=== PATIENT | male | born 1975 ===

== ENCOUNTER 2018-08-26 13:46 | Emergency (ER) | payer MEDICAID, OTHER ==
--- NOTE | 2018-08-26 14:09 | C.PDOC ---
Time Seen by Provider: 08/26/18 14:00 Chief Complaint (Nursing): Lower Extremity Problem/Injury Past Medical History Vital Signs: Last Vital Signs Temp 98.4 F 08/26/18 13:48 Pulse 73 08/26/18 13:48 Resp 20 08/26/18 13:48 BP 131/87 08/26/18 13:48 Pulse Ox 98 08/26/18 13:48 - Social History Hx Alcohol Use: Yes Hx Substance Use: No - Immunization History Hx Tetanus Toxoid Vaccination: No Hx Influenza Vaccination: No Hx Pneumococcal Vaccination: No ED Course And Treatment O2 Sat by Pulse Oximetry: 98 Disposition - Disposition Forms: [facility] ([place]rainian)
--- NOTE | 2018-08-26 14:11 | C.PDOC ---
History Of Present Illness 43 year old male presents to the ED sent by Dr. Cordova for evaluation of right big toe infection. Reports he tried to remove an ingrown nail but it became infected. Complains of pain and swelling. Denies any fever or chills or any other complaints. Denies history of DM. Time Seen by Provider: 08/26/18 14:00 Chief Complaint (Nursing): Lower Extremity Problem/Injury History Per: Patient History/Exam Limitations: no limitations Onset/Duration Of Symptoms: Days Current Symptoms Are (Timing): Still Present Past Medical History Reviewed: Historical Data, Nursing Documentation, Vital Signs Vital Signs: Last Vital Signs Temp 98.4 F 08/26/18 13:48 Pulse 73 08/26/18 13:48 Resp 20 08/26/18 13:48 BP 131/87 08/26/18 13:48 Pulse Ox 98 08/26/18 13:48 - Medical History PMH: No Chronic Diseases Surgical History: No Surg Hx Family History: States: No Known Family Hx - Social History Hx Alcohol Use: Yes Hx Substance Use: No - Immunization History Hx Tetanus Toxoid Vaccination: No Hx Influenza Vaccination: No Hx Pneumococcal Vaccination: No Review Of Systems Except As Marked, All Systems Reviewed And Found Negative. Constitutional: Negative for: Fever, Chills Physical Exam - Physical Exam Appears: Non-toxic, No Acute Distress Skin: Warm, Dry, No Rash Head: Normacephalic Eye(s): bilateral: Normal Inspection Nose: Normal Oral Mucosa: Moist Neck: Supple Chest: Symmetrical Cardiovascular: Rhythm Regular, No Murmur Respiratory: Normal Breath Sounds, No Rales, No Rhonchi, No Wheezing Extremity: Tenderness (right big toe ), No Pedal Edema, No Deformity, Swelling (right big toe ), Other (purulent drainage in inner cuticle of right big toe ) Neurological/Psych: Oriented x3, Normal Speech Gait: Steady ED Course And Treatment - Laboratory Results Result Diagrams: 08/26/18 14:35 08/26/18 14:35 Lab Interpretation: Normal O2 Sat by Pulse Oximetry: 98 (RA) Pulse Ox Interpretation: Normal - Other Rad No standard instances X-Ray: Viewed By Me, Read By Radiologist Interpretation: FINDINGS: BONES: Normal. No fracture. JOINTS: Normal. SOFT TISSUES: Mild diffuse soft tissue swelling in the foot. OTHER FINDINGS: None. IMPRESSION: No acute fracture or bone destruction. Mild diffuse soft tissue swelling in the foot likely represents cellulitis. Progress Note: Treated with vancomycin IV. Case discussed and patient evaluated by podiatry resident who request uric acid level. Patient re-evaluated by podiatry resident who request discharge and follow up with podiatry. Podiatry resident request prescriptions for cipro, clindamycin and colchine be given to patient at discharge. Patient discharge in stable condition Reassessment Condition: Improved Medical Decision Making Medical Decision Making: Plan - Bloodwork - UA - XR right foot - UA Discussed case with Podiatry resident. Will come to evaluate patient. 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 - Scribe Statement The provider has reviewed the documentation as recorded by the Jesseeibmarco Gamez All medical record entries made by the Campbell were at my direction and personally dictated by me. I have reviewed the chart and agree that the record accurately reflects my personal performance of the history, physical exam, medical decision making, and the department course for this patient. I have also personally directed, reviewed, and agree with the discharge instructions and disposition.
[2018-08-26] MEDS ORDERED: Vancomycin 1 GM 1 GM/250 ML BAG IV STA (14:13)
[2018-08-26 14:29] LABS: URINE BILIRUBIN NEGATIVE (NEGATIVE); URINE BLOOD 2+ (NEGATIVE); URINE CLARITY Clear (Clear); URINE COLOR Yellow (YELLOW); URINE GLUCOSE (UA) NORMAL (Normal); URINE LEUKOCYTE ESTERASE NEG Leu/uL (Negative); URINE PROTEIN NEGATIVE (NEGATIVE); URINE UROBILINOGEN NORMAL mg/dL (0.2-1.0)
[2018-08-26] MEDS ORDERED: Vancomycin 1 GM 1 GM/250 ML BAG IVPB ONE (14:30)
[2018-08-26 14:41] LABS: BASO % 0.6 % (0.0-2.0); EOS % 0.7 % (0.0-4.0); HEMOGLOBIN 13.4 g/dL (12.0-18.0); LYMPH # 1.6 K/uL (1.0-4.3); LYMPH % 29.4 % (20.0-40.0); MEAN CELL VOLUME 87.4 fL (80.0-94.0); MEAN CORPUSCULAR HEMOGLOBIN 29.8 pg (27.0-31.0); MEAN CORPUSCULAR HGB CONC 34.1 g/dL (33.0-37.0); MEAN PLATELET VOLUME 6.4 fL (7.2-11.7); MONO # 0.3 K/uL (0.0-0.8); MONO % 5.4 % (0.0-10.0); NEUT # 3.5 K/uL (1.8-7.0); NEUT % 63.9 % (50.0-75.0); NRBC % 0.1 % (0.0-2.0); RBC 4.49 Mil/uL (4.40-5.90); RED CELL DISTRIBUTION WIDTH 12.5 % (11.5-14.5); WHITE BLOOD COUNT 5.4 K/uL (4.8-10.8)
--- NOTE | 2018-08-26 14:51 | RAD ---
Date of service: 08/26/2018 PROCEDURE: Right Foot Radiographs. HISTORY: cellulitis COMPARISON: None. TECHNIQUE: 3 views obtained. FINDINGS: BONES: Normal. No fracture. JOINTS: Normal. SOFT TISSUES: Mild diffuse soft tissue swelling in the foot. OTHER FINDINGS: None. IMPRESSION: No acute fracture or bone destruction. Mild diffuse soft tissue swelling in the foot likely represents cellulitis.
[2018-08-26 14:55] LABS: ALB/GLOB RATIO 1.2 (1.0-2.1); ALBUMIN 4.5 g/dL (3.5-5.0); ALT/SGPT 25 U/L (21-72); AST/SGOT 32 U/L (17-59); BLOOD UREA NITROGEN 14 mg/dL (9-20); GFR NON-AFRICAN AMERICAN > 60
--- NOTE | 2018-08-26 16:02 | CP.PCM.CON ---
History of Present Illness - History of Present Illness History of Present Illness: Podiatry Consult Note: Dr. Gotti 43 year old male with no significant PMHx was evaluated in ED after being sent by Dr. Gotti for right big toe pain. Patient states that he had a nail avulsion performed in the ED by Dr. Gotti past Thursday. Reports that he has been taking Keflex as an outpatient but today he noticed little swelling around the big toe area. States that he went to go see Dr. Gotti who was concerned for an infection and decided to send him to the ER. Patient states that he had little pain to the toe this morning but he is feeling better now. Upon asking, reports that he has high amount of red meat, and sea foot consumption. States that he drinks a lot of beer and occasional Whisky. Patient denies of having any recent F/N/V/C/SOB/CP/headache. No other pedal complains at this time. PMHx: Denies PSHx: Denies Allergies: N.K.D.A SHx: Denies smoking, Agrees to EtOH use, denies illicit drug usage Review of Systems - Constitutional Constitutional: As Per HPI Past Patient History - Past Social History Smoking Status: Vapor - PSYCHIATRIC Hx Substance Use: No - SURGICAL HISTORY Hx Surgeries: No - ANESTHESIA Hx Anesthesia: No Meds Home Medications: Home Medication List Medication Instructions Recorded Confirmed Type Ciprofloxacin [Cipro] 1 tab PO BID #14 tab 08/26/18 Rx Clindamycin [Cleocin] 300 mg PO TID #21 cap 08/26/18 Rx Colchicine 0.6 mg PO DAILY #10 tablet 08/26/18 Rx Allergies/Adverse Reactions: Allergies Allergy/AdvReac Type Severity Reaction Status Date / Time No Known Allergies Allergy Verified 08/26/18 13:52 Physical Exam - Constitutional Appears: Well, Non-toxic, No Acute Distress - Extremities Exam Additional comments: RLE focused exam: VASC: DP/PT pulses are palpable 2/4; Cap refill time: < 3 sec to all digits, Temp gradient: warm to cool from proximal to distal with localized warmth on the medial aspect of the 1st MTPJ, diffuse localized non-pitting edema noted on the forefoot DERM: Scabbing of the medial aspect of the nail border on the hallux with no active drainage, no malodor, no probe to bone, no undermining, no tunneling, no erythema, no clinical suspicion of active infection NEURO: Protective sensation grossly intact ORTHO: no pain on palpation of the medial distal hallux nail border, minimal pain during ROM at the 1st MTPJ, minimal pain surrounding the 1st MTPJ diffusly - Neurological Exam Neurological exam: Alert, Oriented x3 - Psychiatric Exam Psychiatric exam: Normal Affect, Normal Mood Results - Vital Signs Recent Vital Signs: Last Vital Signs Temp 98.4 F 08/26/18 13:48 Pulse 73 08/26/18 13:48 Resp 20 08/26/18 13:48 BP 131/87 08/26/18 13:48 Pulse Ox 98 08/26/18 14:56 - Labs Result Diagrams: 08/26/18 14:35 08/26/18 14:35 Labs: Laboratory Results - last 24 hr 08/26/18 08/26/18 08/26/18 14:18 14:35 14:35 WBC 5.4 RBC 4.49 Hgb 13.4 Hct 39.3 MCV 87.4 MCH 29.8 MCHC 34.1 RDW 12.5 Plt Count 342 MPV 6.4 L Neut % (Auto) 63.9 Lymph % (Auto) 29.4 Snyder % (Auto) 5.4 Eos % (Auto) 0.7 Baso % (Auto) 0.6 Neut # (Auto) 3.5 Lymph # (Auto) 1.6 Snyder # (Auto) 0.3 Eos # (Auto) 0.0 Baso # (Auto) 0.0 ESR 40 H Sodium 138 Potassium 3.9 Chloride 102 Carbon Dioxide 29 Anion Gap 11 BUN 14 Creatinine 0.9 Est GFR ( Amer) > 60 Est GFR (Non-Af Amer) > 60 Random Glucose 94 Calcium 10.0 Total Bilirubin 0.4 AST 32 ALT 25 Alkaline Phosphatase 85 C-React Prot High Sens Total Protein 8.3 Albumin 4.5 Globulin 3.8 Albumin/Globulin Ratio 1.2 Urine Color Yellow Urine Clarity Clear Urine pH 5.0 Ur Specific Somers 1.023 Urine Protein Negative Urine Glucose (UA) Normal Urine Ketones Negative Urine Blood 2+ H Urine Nitrate Negative Urine Bilirubin Negative Urine Urobilinogen Normal Ur Leukocyte Esterase Neg Urine WBC (Auto) 1 Urine RBC (Auto) 3 08/26/18 14:35 WBC RBC Hgb Hct MCV MCH MCHC RDW Plt Count MPV Neut % (Auto) Lymph % (Auto) Snyder % (Auto) Eos % (Auto) Baso % (Auto) Neut # (Auto) Lymph # (Auto) Snyder # (Auto) Eos # (Auto) Baso # (Auto) ESR Sodium Potassium Chloride Carbon Dioxide Anion Gap BUN Creatinine Est GFR ( Amer) Est GFR (Non-Af Amer) Random Glucose Calcium Total Bilirubin AST ALT Alkaline Phosphatase C-React Prot High Sens 8.01 H Total Protein Albumin Globulin Albumin/Globulin Ratio Urine Color Urine Clarity Urine pH Ur Specific Somers Urine Protein Urine Glucose (UA) Urine Ketones Urine Blood Urine Nitrate Urine Bilirubin Urine Urobilinogen Ur Leukocyte Esterase Urine WBC (Auto) Urine RBC (Auto) Assessment & Plan - Assessment and Plan (Free Text) Assessment: 43 year old male with no significant PMHx was evaluated in the ED for s/p nail avulsion infection vs. Gout Plan: Patient seen and evaluated Discussed plan with attending Dr. Gotti VSS; no leukocytosis, Elevated ESR and CRP UA: 5.3 X-rays ordered/reviewed: no soft tissue emphysema, no acute signs of fractures or dislocations Dressing applied using xeroform, betadine, DSD Educated patient of the findings; all questions addressed and answered Rx: Ciprofloxacin, Clindamycin, Colchicine Educated patient to follow up with Dr. Gotti in his office next week Educated patient to return to ED if symptoms are worsening Demonstrated verbal understanding of the plan Thank you for the podiatry consult and allowing to take part in patient care - Date & Time Date: 08/26/18 Time: 17:30
[2018-08-26 16:53] VITALS: BP 127/85; PULSE 62; RESP 17; TEMP 98.6
[2018-08-26 17:20] VITALS: O2SAT 98
== END 2018-08-26 17:35 | disposition home or self-care (01) ==
LOC: C.ER 13:46
DX: M10.9 Gout, unspecified (principal); L03.115 Cellulitis of right lower limb
CPT/HCPCS: 73630; 80053; 81001; 84550; 85025; 85651; 86140; 96374; 99285; J3370